=== PATIENT | female | born 1985 | race Caucasian/White ===

== ENCOUNTER 2017-12-26 10:02 | Emergency (ER) | payer MEDICARE, MEDICAID ==
[~2017-12-26] VITALS: Ht 152.4 cm; Wt 139.7 kg
[~2017-12-26 10:02] MED LIST: ACETAMINOPHEN-1 EAC1 PO; AMOXICILLIN 50500 MG PO; AUGMENTIN 875-1 EACH PO; AUGMENTIN 875875 MG PO; BACTRIM DS TAB1 EACH PO; BACTROBAN CREAM30 G1 TOP; CEPHALEXIN 500500 M3 PO; CORTISPORIN OTI10 M2 OTIC; DILANTIN100 MG PO; DOXYCYCLINE 10100 MG PO; FLONASE 0.05%50 MCG NASAL; HYDROCODONE-AP1 EAC6 PO; IBUPROFEN 800800 M1; IBUPROFEN 800800 M1 PO; IBUPROFEN 800800 MG PO; MEDROLDOSEPACK PO; MUCINEX; NORCO 10-325 T1 EACH PO; NORCO 5-325 TA1 EAC1 PO; NORCO 5-325 TA1 EACH PO; ONDANSETRON HCL4 M2 PO; PENICILLIN; PENICILLIN VK250 MG PO; PERCOCET PO; PHENERGAN 25 MG25 M1 PO; PROMETHAZINE-D120 ML PO; SERTRALINE HCL100 MG PO; TRAMADOL 50 MG50 MG PO; TRAZODONE HCL50 MG; VENTOLIN HFA 1818 GM INH; VENTOLIN HFA INH8 GM IH; VISTARIL50 MG PO; ZANTAC 150MG T150 M1; ZANTAC 150MG T150 M1 PO; ZOFRAN ODT4 MG; ZOFRAN ODT4 MG SUBLING; ZOLOFT 50 MG TA50 M1 PO; ZPAK PO; [UNRECOGNIZED DRUG - OTHER]
[2017-12-26] MEDS ORDERED: AMOXICILLIN 50500 MG PO (10:39)
[2017-12-26 10:45] VITALS: BP 125/71
== END 2017-12-26 10:49 | disposition home or self-care (01) ==
LOC: M.ERS 10:02
DX: J01.00 Acute maxillary sinusitis, unspecified (principal); R09.82 Postnasal drip; G43.909 Migraine, unspecified, not intractable, without status migrainosus; E03.9 Hypothyroidism, unspecified; Z90.49 Acquired absence of other specified parts of digestive tract; Z88.1 Allergy status to other antibiotic agents; Z88.5 Allergy status to narcotic agent; Z88.8 Allergy status to other drugs, medicaments and biological substances; Z91.012 Allergy to eggs; Z77.22 Contact with and (suspected) exposure to environmental tobacco smoke (acute) (chronic)

== ENCOUNTER 2018-03-06 11:31 | Emergency (ER) | payer MEDICARE, MEDICAID ==
[~2018-03-06] VITALS: Ht 152.4 cm; Wt 138.3 kg
[2018-03-06] MEDS ORDERED: FLONASE 0.05%50 MCG NASAL (12:39)
[2018-03-06] MEDS ORDERED: TESSALON PERLE100 MG PO (12:39)
[2018-03-06] MEDS ORDERED: MEDROLDOSEPACK PO (12:39)
[2018-03-06 12:55] VITALS: BP 116/72
== END 2018-03-06 12:55 | disposition home or self-care (01) ==
LOC: M.ERS 11:31
DX: J06.9 Acute upper respiratory infection, unspecified (principal); E03.9 Hypothyroidism, unspecified; G43.909 Migraine, unspecified, not intractable, without status migrainosus; M19.90 Unspecified osteoarthritis, unspecified site; Z90.49 Acquired absence of other specified parts of digestive tract; E66.01 Morbid (severe) obesity due to excess calories; Z68.43 Body mass index [BMI] 50.0-59.9, adult; Z88.6 Allergy status to analgesic agent; Z88.1 Allergy status to other antibiotic agents; Z88.8 Allergy status to other drugs, medicaments and biological substances; Z91.012 Allergy to eggs; Z77.22 Contact with and (suspected) exposure to environmental tobacco smoke (acute) (chronic)

== ENCOUNTER 2018-03-12 09:38 | Emergency (ER) | payer MEDICARE, MEDICAID ==
[~2018-03-12] VITALS: Ht 152.4 cm; Wt 139.7 kg
[~2018-03-12 09:38] MED LIST changes: +TESSALON PERLE100 MG PO
[2018-03-12 09:48] VITALS: BP 144/78
[2018-03-12] MEDS ORDERED: IBUPROFEN 800800 MG PO (10:22)
[2018-03-12] MEDS ORDERED: TIZANIDINE HCL 22 MG PO (10:22)
== END 2018-03-12 10:34 | disposition home or self-care (01) ==
LOC: M.ERS 09:38
DX: S16.1XXA Strain of muscle, fascia and tendon at neck level, initial encounter (principal); E66.01 Morbid (severe) obesity due to excess calories; M19.90 Unspecified osteoarthritis, unspecified site; G43.909 Migraine, unspecified, not intractable, without status migrainosus; G25.81 Restless legs syndrome; E03.9 Hypothyroidism, unspecified; Z88.1 Allergy status to other antibiotic agents; Z86.2 Personal history of diseases of the blood and blood-forming organs and certain disorders involving the immune mechanism; Z88.8 Allergy status to other drugs, medicaments and biological substances; Z88.5 Allergy status to narcotic agent; Z91.012 Allergy to eggs; Z77.22 Contact with and (suspected) exposure to environmental tobacco smoke (acute) (chronic); Z68.44 Body mass index [BMI] 60.0-69.9, adult; V43.52XA Car driver injured in collision with other type car in traffic accident, initial encounter; Y93.89 Activity, other specified; Y92.89 Other specified places as the place of occurrence of the external cause; Y99.8 Other external cause status

== ENCOUNTER 2018-05-07 12:39 | Emergency (ER) | payer MEDICARE, MEDICAID ==
[~2018-05-07] VITALS: Ht 152.4 cm; Wt 136.1 kg
[~2018-05-07 12:39] MED LIST changes: +TIZANIDINE HCL 22 MG PO
[2018-05-07 13:44] VITALS: BP 130/71
== END 2018-05-07 13:45 | disposition home or self-care (01) ==
LOC: M.ERS 12:39
DX: M25.511 Pain in right shoulder (principal); E66.01 Morbid (severe) obesity due to excess calories; M19.90 Unspecified osteoarthritis, unspecified site; G43.909 Migraine, unspecified, not intractable, without status migrainosus; G25.81 Restless legs syndrome; E03.9 Hypothyroidism, unspecified; Z90.49 Acquired absence of other specified parts of digestive tract; Z86.2 Personal history of diseases of the blood and blood-forming organs and certain disorders involving the immune mechanism; Z68.43 Body mass index [BMI] 50.0-59.9, adult; Z88.8 Allergy status to other drugs, medicaments and biological substances; Z88.1 Allergy status to other antibiotic agents; Z91.012 Allergy to eggs; Z88.5 Allergy status to narcotic agent; Z77.22 Contact with and (suspected) exposure to environmental tobacco smoke (acute) (chronic)

== ENCOUNTER 2018-06-14 14:43 | Emergency (ER) | payer MEDICARE, MEDICAID ==
[~2018-06-14] VITALS: Ht 152.4 cm; Wt 136.1 kg
[2018-06-14 14:47] VITALS: BP 128/81
[2018-06-14] MEDS ORDERED: NASONEX17 GM NASAL (15:17)
== END 2018-06-14 15:24 | disposition home or self-care (01) ==
LOC: M.ERS 14:43
DX: H92.01 Otalgia, right ear (principal); J30.9 Allergic rhinitis, unspecified; G43.909 Migraine, unspecified, not intractable, without status migrainosus; E03.9 Hypothyroidism, unspecified; G25.81 Restless legs syndrome; M19.90 Unspecified osteoarthritis, unspecified site; E66.01 Morbid (severe) obesity due to excess calories; Z68.43 Body mass index [BMI] 50.0-59.9, adult; Z86.2 Personal history of diseases of the blood and blood-forming organs and certain disorders involving the immune mechanism; Z90.49 Acquired absence of other specified parts of digestive tract; Z88.1 Allergy status to other antibiotic agents; Z88.6 Allergy status to analgesic agent; Z88.8 Allergy status to other drugs, medicaments and biological substances; Z91.012 Allergy to eggs; Z77.22 Contact with and (suspected) exposure to environmental tobacco smoke (acute) (chronic)

== ENCOUNTER 2018-12-19 15:36 | Emergency (ER) | payer MEDICARE, MEDICAID ==
[~2018-12-19] VITALS: Ht 152.4 cm; Wt 139.7 kg
[~2018-12-19 15:36] MED LIST changes: +NASONEX17 GM NASAL
[2018-12-19] MEDS ORDERED: FLONASE 0.05%50 MCG NASAL (17:09)
[2018-12-19 17:50] VITALS: BP 138/78
== END 2018-12-19 17:20 | disposition home or self-care (01) ==
LOC: M.ERS 15:36
DX: R09.81 Nasal congestion (principal); R05 Cough; M19.90 Unspecified osteoarthritis, unspecified site; G43.909 Migraine, unspecified, not intractable, without status migrainosus; G25.81 Restless legs syndrome; E03.9 Hypothyroidism, unspecified; E66.01 Morbid (severe) obesity due to excess calories; Z77.22 Contact with and (suspected) exposure to environmental tobacco smoke (acute) (chronic); Z88.8 Allergy status to other drugs, medicaments and biological substances; Z88.1 Allergy status to other antibiotic agents; Z91.012 Allergy to eggs; Z88.5 Allergy status to narcotic agent; Z90.49 Acquired absence of other specified parts of digestive tract; Z86.2 Personal history of diseases of the blood and blood-forming organs and certain disorders involving the immune mechanism; Z68.44 Body mass index [BMI] 60.0-69.9, adult

== ENCOUNTER 2019-02-23 04:14 | Emergency (ER) | payer MEDICARE, MEDICAID ==
[~2019-02-23] VITALS: Ht 152.4 cm; Wt 136.1 kg
[2019-02-23] MEDS ORDERED: ZOFRAN4 MG PO (05:08)
[2019-02-23 05:29] VITALS: BP 126/88
== END 2019-02-23 05:30 | disposition home or self-care (01) ==
LOC: M.ERS 04:14
DX: J02.8 Acute pharyngitis due to other specified organisms (principal); B97.89 Other viral agents as the cause of diseases classified elsewhere; M19.90 Unspecified osteoarthritis, unspecified site; G43.909 Migraine, unspecified, not intractable, without status migrainosus; G25.81 Restless legs syndrome; E03.9 Hypothyroidism, unspecified; E66.01 Morbid (severe) obesity due to excess calories; Z77.22 Contact with and (suspected) exposure to environmental tobacco smoke (acute) (chronic); Z88.1 Allergy status to other antibiotic agents; Z88.5 Allergy status to narcotic agent; Z90.49 Acquired absence of other specified parts of digestive tract; Z88.8 Allergy status to other drugs, medicaments and biological substances; Z91.012 Allergy to eggs; Z86.2 Personal history of diseases of the blood and blood-forming organs and certain disorders involving the immune mechanism; Z68.43 Body mass index [BMI] 50.0-59.9, adult

== ENCOUNTER 2019-03-10 03:08 | Emergency (ER) | payer MEDICARE, MEDICAID ==
[~2019-03-10] VITALS: Ht 160 cm; Wt 142.7 kg
[~2019-03-10 03:08] MED LIST changes: +ZOFRAN4 MG PO
[2019-03-10] MEDS ORDERED: NEURONTIN100 MG PO (03:55)
[2019-03-10] MEDS ORDERED: CARAFATE 1 GM TA1 GM PO (03:55)
[2019-03-10 04:10] VITALS: BP 121/79
--- NOTE | 2019-03-11 11:36 | EKG ---
[place] [address] ELECTROCARDIOGRAM REPORT Name: NIKOLAS GUILLERMO Room: [facility]#: [id number] Admission: 03/10/19 Attend Phys: Discharge: 03/10/19 Date of : 81 Report #: [id number] THIS REPORT FOR: //name// [facility] ED Test Date: 2019-03-10 Test Time: 03:14:28 Pat Name: NIKOLAS EAGLE Department: Room: Gender: F Nurse Aide: LUCIA : 1985 Requested By: Elsy Trinidad Order Number: [id number] Michael MD: Samuel Koo Measurements Intervals [place] Rate: 89 P: 18 [place]: 125 QRS: 10 QRSD: 94 T: -2 QT: 341 QTc: 415 Interpretive Statements Sinus rhythm Consider anterior infarct Compared to ECG 02/19/2016 19:52:22 Sinus arrhythmia no longer present Myocardial infarct finding still present Electronically Signed On 03-11-2019 11:36:02 CDT by Samuel Koo [email or web address] <ELECTRONICALLY SIGNED> By: Samuel Koo MD, [facility] 03/11/19 1136 3 3 Samuel Koo MD, FACC /EPI
== END 2019-03-10 04:15 | disposition home or self-care (01) ==
LOC: M.ERS 03:08
DX: F41.9 Anxiety disorder, unspecified (principal); R12 Heartburn; E03.9 Hypothyroidism, unspecified; E66.01 Morbid (severe) obesity due to excess calories; G43.909 Migraine, unspecified, not intractable, without status migrainosus; G25.81 Restless legs syndrome; Z77.22 Contact with and (suspected) exposure to environmental tobacco smoke (acute) (chronic); Z88.8 Allergy status to other drugs, medicaments and biological substances; Z88.1 Allergy status to other antibiotic agents; Z91.012 Allergy to eggs; Z88.5 Allergy status to narcotic agent; Z86.2 Personal history of diseases of the blood and blood-forming organs and certain disorders involving the immune mechanism; Z90.49 Acquired absence of other specified parts of digestive tract; Z68.43 Body mass index [BMI] 50.0-59.9, adult

== ENCOUNTER 2019-04-14 15:05 | Emergency (ER) | payer MEDICARE, MEDICAID ==
[~2019-04-14] VITALS: Ht 160 cm; Wt 143.7 kg
[~2019-04-14 15:05] MED LIST changes: +CARAFATE 1 GM TA1 GM PO; +NEURONTIN100 MG PO
[2019-04-14] MEDS ORDERED: BUSPIRONE HCL10 MG PO (15:14)
[2019-04-14] MEDS ORDERED: MEDROLDOSEPACK PO (15:49)
[2019-04-14 15:58] VITALS: BP 135/87
== END 2019-04-14 15:59 | disposition home or self-care (01) ==
LOC: M.ERS 15:05
DX: M76.71 Peroneal tendinitis, right leg (principal); M19.90 Unspecified osteoarthritis, unspecified site; G43.909 Migraine, unspecified, not intractable, without status migrainosus; G25.81 Restless legs syndrome; E03.9 Hypothyroidism, unspecified; E66.01 Morbid (severe) obesity due to excess calories; Z88.1 Allergy status to other antibiotic agents; Z88.5 Allergy status to narcotic agent; Z91.012 Allergy to eggs; Z88.8 Allergy status to other drugs, medicaments and biological substances; Z77.22 Contact with and (suspected) exposure to environmental tobacco smoke (acute) (chronic); Z86.2 Personal history of diseases of the blood and blood-forming organs and certain disorders involving the immune mechanism; Z68.43 Body mass index [BMI] 50.0-59.9, adult; Z90.49 Acquired absence of other specified parts of digestive tract

== ENCOUNTER 2019-08-29 03:02 | Emergency (ER) | payer MEDICARE, MEDICAID ==
[~2019-08-29] VITALS: Ht 154.9 cm; Wt 140.6 kg
[~2019-08-29 03:02] MED LIST changes: +BUSPIRONE HCL10 MG PO
[2019-08-29 03:49] LABS: ABSOLUTE BASOPHILS 0.1 thou/uL (0.0-0.2); ABSOLUTE EOSINOPHILS 0.3 thou/uL (0.0-0.7); ABSOLUTE LYMPHOCYTES 3.6 thou/uL (0.8-5.3); ABSOLUTE MONOCYTES 0.6 thou/uL (0.0-1.2); ABSOLUTE NEUTROPHILS 4.6 thou/uL (1.6-8.1); BASOPHILS 0.7 %; EOSINOPHILS 3.8 %; HEMATOCRIT 36.3 % (37.0-47.0); HEMOGLOBIN 12.1 gm/dL (12.0-15.0); MCH 25.6 pg (26.0-34.0); MCHC 33.4 g/dL (28.0-37.0); MCV 76.8 fL (80.0-100.0); MONOCYTES 6.6 %; MPV 7.3 fl. (7.2-11.1); NUCLEATED RBCS 0 /100WBC; PLATELET COUNT* 268 thou/uL (150-400); POLYS 49.9 %; RBC 4.73 mil/uL (4.20-5.00); RDW-CV 14.6 % (10.5-14.5); WBC 9.2 thou/uL (4.0-11.0)
[2019-08-29 03:59] LABS: ANION GAP 11 mmol/L (7-16); APTT 29.5 Seconds (25.0-31.3); BUN 7 mg/dL (7-18); CALCIUM 8.8 mg/dL (8.5-10.1); CHLORIDE 103 mmol/L (98-107); CO2 24 mmol/L (21-32); CREATININE 0.8 mg/dL (0.6-1.3); GLUCOSE 123 mg/dL (70-99); POTASSIUM 3.6 mmol/L (3.5-5.1); PROTIME 10.4 Seconds (9.20-11.50); SODIUM 138 mmol/L (136-145)
[2019-08-29 04:12] LABS: ALBUMIN 2.8 g/dL (3.4-5.0); ALKALINE PHOSPHATASE 86 U/L (46-116); CK-MB MASS < 0.5 ng/mL (<0.5-3.6); LIPASE 87 U/L (73-393); MAGNESIUM 1.6 mg/dL (1.8-2.4); NT-PRO BRAIN NAT PEPTIDE 53 pg/mL (<300); SGOT 11 U/L (15-37); SGPT 25 U/L (30-65); TOTAL BILIRUBIN 0.2 mg/dL (<0.1-1.0); TROPONIN-I LEVEL <0.06 ng/mL (<0.06)
[2019-08-29 04:54] VITALS: BP 140/87
--- NOTE | 2019-08-29 16:23 | EKG ---
[place] [address] ELECTROCARDIOGRAM REPORT Name: NIKOLAS GUILLERMO Room: [facility]#: [id number] Admission: 08/29/19 Attend Phys: Discharge: 08/29/19 Date of : 81 Report #: [id number] THIS REPORT FOR: //name// [facility] ED Test Date: 2019-08-29 Test Time: 03:06:57 Pat Name: NIKOLAS OLIVARESTON Department: Room: Gender: F [employer]: : 1985 Requested By: Pavel Early Order Number: [id number] MD: Samuel Koo Measurements Intervals [place] Rate: 72 P: 41 [place]: 127 QRS: 9 QRSD: 93 T: 2 QT: 356 QTc: 390 Interpretive Statements Sinus rhythm Baseline wander in lead(s) V1,V2,V3 Compared to ECG 03/10/2019 03:14:28 Myocardial infarct finding no longer present Electronically Signed On 08-29-2019 16:23:21 CDT by Samuel Koo [email or web address] <ELECTRONICALLY SIGNED> By: Samuel Koo MD, [facility] 08/29/19 1623 5 5 Samuel Koo MD, [facility] /EPI
== END 2019-08-29 04:55 | disposition home or self-care (01) ==
LOC: M.ERS 03:02
PROVIDERS: Family Medicine
DX: R07.9 Chest pain, unspecified (principal); E03.9 Hypothyroidism, unspecified; M19.90 Unspecified osteoarthritis, unspecified site; G43.909 Migraine, unspecified, not intractable, without status migrainosus; G25.81 Restless legs syndrome; E66.01 Morbid (severe) obesity due to excess calories; Z68.43 Body mass index [BMI] 50.0-59.9, adult; Z90.49 Acquired absence of other specified parts of digestive tract; Z86.2 Personal history of diseases of the blood and blood-forming organs and certain disorders involving the immune mechanism; Z91.012 Allergy to eggs; Z88.1 Allergy status to other antibiotic agents; Z88.6 Allergy status to analgesic agent; Z88.8 Allergy status to other drugs, medicaments and biological substances; Z77.22 Contact with and (suspected) exposure to environmental tobacco smoke (acute) (chronic)

== ENCOUNTER 2020-12-23 17:34 | Emergency (ER) | payer MEDICARE, MEDICAID ==
[~2020-12-23] VITALS: Ht 154.9 cm; Wt 136.1 kg
[2020-12-23] MEDS ORDERED: ESCITALOPRA5 MG/5 ML PO (17:49)
[2020-12-23] MEDS ORDERED: DILANTIN30 MG PO (17:49)
[2020-12-23] MEDS ORDERED: AUGMENTIN 875-1 EACH PO (18:01)
[2020-12-23 18:10] VITALS: BP 170/96
== END 2020-12-23 18:11 | disposition home or self-care (01) ==
LOC: M.ERS 17:34
DX: H66.91 Otitis media, unspecified, right ear (principal); Z77.22 Contact with and (suspected) exposure to environmental tobacco smoke (acute) (chronic); E03.9 Hypothyroidism, unspecified; G25.81 Restless legs syndrome; G43.909 Migraine, unspecified, not intractable, without status migrainosus; M19.90 Unspecified osteoarthritis, unspecified site; E66.01 Morbid (severe) obesity due to excess calories; Z88.5 Allergy status to narcotic agent; Z88.1 Allergy status to other antibiotic agents; Z88.8 Allergy status to other drugs, medicaments and biological substances; Z91.012 Allergy to eggs; Z90.49 Acquired absence of other specified parts of digestive tract; Z86.2 Personal history of diseases of the blood and blood-forming organs and certain disorders involving the immune mechanism; Z68.43 Body mass index [BMI] 50.0-59.9, adult